=== PATIENT | male | born 1960 | race Caucasian/White ===

== ENCOUNTER 2022-06-21 08:26 | Inpatient (IN) | payer OTHER, SELFPAY ==
[2022-06-21 08:28] VITALS: BP 188/112; PULSE 73; RESP 18; TEMP 36.6; O2SAT 98; BMI 31.0
--- NOTE | 2022-06-21 08:51 | ECG_ITS ---
Test Reason : medical clearance Blood Pressure : / mmHG Vent. Rate : 064 BPM Atrial Rate : 064 BPM P-R Int : 178 ms QRS Dur : 072 ms QT Int : 434 ms P-R-T Axes : 022 000 014 degrees QTc Int : 447 ms Normal sinus rhythm Normal ECG No previous ECGs available Referred By: Magui Jacques Electronically Signed By:DESTINEE ESPARZA
--- NOTE | 2022-06-21 08:52 | ED_ITS ---
HPI - Psych General Chief Complaint: Psychiatric Symptoms Stated Complaint: crisis Time Seen by Provider: 06/21/22 08:51 Source: patient Mode of arrival: ambulatory Limitations: no limitations History of Present Illness MD complaint: suicidal ideation and feels depressed Onset (ago): day(s) (2) Duration: getting worse History of same: Yes Relieving factors: none Exacerbating factors: alcohol and drug use Context: recent alcohol abuse and recent drug abuse Associated psychiatric symptoms: depression and suicidal ideation Associated symptoms: denies other symptoms If self harm: admits thoughts of self harm and has plan Related Data Home Medications Medication Instructions Recorded Confirmed divalproex 500 mg tablet,delayed 1 tab PO DAILY 06/21/22 06/21/22 release divalproex 500 mg tablet,delayed 1,000 mg PO BEDTIME 06/21/22 06/21/22 release doxycycline monohydrate 100 mg 100 mg PO BID 06/21/22 06/21/22 tablet duloxetine 60 mg capsule,delayed 1 cap PO DAILY 06/21/22 06/21/22 release gabapentin 800 mg tablet 1 tab PO TID 06/21/22 06/21/22 quetiapine 100 mg tablet 1 tab PO BEDTIME 06/21/22 06/21/22 Allergies Allergy/AdvReac Type Severity Reaction Status Date / Time buprenorphine [From Suboxone] Allergy Unknown Verified 06/21/22 08:56 naloxone [From Suboxone] Allergy Unknown Verified 06/21/22 08:56 Review of Systems Review of Systems: Constitutional : No Fever, No Chills ENT/Mouth : No Ear Pain, No Nasal Congestion, No sore throat Eyes: No Eye Pain, No Swelling, No Redness Cardiovascular : No Chest Pain, No SOB Respiratory : No Cough, No Sputum, No Dyspnea Gastrointestinal : No Nausea, No Vomiting, No Diarrhea, No Hematochezia, No Melena Genitourinary : No Dysuria, No Urinary Frequency, No Hematuria Musculoskeletal : No Myalgias Skin : No Skin Lesions, No rash Neuro : No Weakness, No Numbness, No Paresthesias, No Dizziness, No Headache Psych : positive Anxiety, positive Depression, positive SI no HI Heme/Lymph: No Lymphadenopathy Endocrine : No Polyuria, No Polydipsia All other systems reviewed and are negative [facility] Past Medical History Attestation statement: The following information was validated with the patient. Medical History Arthritis Depression HTN (hypertension) Social History Social History Alcohol intake: current Patient Tobacco Use Status: Current someday Tobacco user Substance Use Type: Crack/Cocaine Advance Directives: No Advance Directives Information Provided: No Physical Exam Vital Signs: Vital Signs: Last Vital Signs Temp 98 F 06/21/22 08:28 Pulse 73 06/21/22 08:28 Resp 18 06/21/22 08:28 BP 188/112 H 06/21/22 08:28 Pulse Ox 98 06/21/22 08:28 O2 Del Method 06/21/22 08:28 BMI result Body Mass Index 31.0 Appearance: Alert. Oriented X3. No acute distress. Calm and cooperative Eyes: Pupils equal, round and reactive to light. ENT: Pharynx normal. Neck: Normal inspection. Neck supple. CVS: Normal heart rate and rhythm. Pulses normal. Respiratory: No respiratory distress. Breath sounds normal. Abdomen: Soft and non-tender. Skin: Skin warm and dry. Normal skin color. Normal skin turgor. Extremities: No lower extremity edema. No calf ttp Neuro: Oriented X 3. No motor deficit. No sensory deficit. CN 2-12 intact Course Course Course Narrative: Physician observation started at 933am. Patient placed in physician observation because the patient needed more time for BHN to assess the need for psych admission. S 12 signed given SI complaints. At the time observation was started the patient's vitals were stable, patient is alert and oriented but slightly anxious, Neuro: nonfocal, CV RRR, Lungs clear patient now notes he took #30 800mg tabs of of gabapentin early this AM but he is wide awake very chatty looking around laughing no signs of sedation no signs of sedation today inpatient bed search per CARE team. MDM - Psych MDM Narrative Medical decision making narrative: 62 yo male with hx of HTN, arthritis, depression here with c/o SI and plan to hang himself or find a gun to end his life at this time labs, BHN consult ordered. S12 signed. Dispo per their recommendations. Lab Data Result diagrams: 06/21/22 09:31 06/21/22 09:31 Labs: Lab Results 06/21/22 06/21/22 06/21/22 Range/Units 09:31 09:31 10:03 WBC 13.7 H (4.8-10.8) X10*3/uL RBC 4.74 (4.60-5.80) X10*6/uL Hgb 14.6 (14.0-18.0) g/dl Hct 43.8 (42.0-52.0) % MCV 92.4 (80.0-98.0) fL MCH 30.8 (27.0-33.0) pg MCHC 33.3 (31.0-36.0) g/dl RDW 13.6 (11.0-16.0) % Plt Count 247 (160-400) X10*3/uL MPV 9.9 (9.4-12.4) fL Immature Gran % (Auto) 0.4 (0.0-0.4) % Neut % (Auto) 74.5 H (45-73) % Lymph % (Auto) 13.4 L (20-40) % [place] % (Auto) 10.9 (2-11) % Eos % (Auto) 0.4 (0-4) % Baso % (Auto) 0.4 (0-2) % Lymph # (Auto) 1.8 (1.2-4.9) X10*3/uL [place] # (Auto) 1.5 H (0.1-1.2) X10*3/uL Eos # (Auto) 0.1 (0.0-0.4) X10*3/uL Baso # (Auto) 0.1 (0.0-0.2) X10*3/uL Abs Immat Gran (auto) 0.05 H (0.00-0.03) X10*3/uL Absolute Neuts (auto) 10.2 H (2.0-8.3) x10*3/uL Absolute Nucleated RBC 0.000 (0.0-0.012) X10*3/uL Nucleated RBC % (auto) 0.0 (0.0-0.2) /100WBC Sodium 140 (135-145) mmol/L Potassium 3.9 (3.3-5.1) mmol/L Chloride 104 (96-108) mmol/L Carbon Dioxide 24 (22-29) mmol/L Anion Gap 16 (12-20) BUN 17 H (9-16) mg/dL Creatinine 0.86 (0.5-1.4) mg/dL Estim Creat Clear Calc 101.4 Estimated GFR > 60 Random Glucose 105 (60-115) mg/dL Calcium 9.0 (8.4-10.2) mg/dL Magnesium 2.2 (1.6-2.6) mg/dL Total Bilirubin 0.7 (0.0-1.0) mg/dL Direct Bilirubin 0.3 (0.0-0.5) mg/dL AST 27 (5-37) U/L ALT 16 (0-40) U/L Alkaline Phosphatase 84 (39-117) U/L Total Protein 7.1 (6.5-8.0) g/dL Albumin 4.4 (3.5-5.0) g/dL Urine Color Urine Appearance Urine pH (5.0-8.0) Ur Specific [place] (1.005-1.025) Urine Protein (NEG-TRACE) MG/DL Urine Glucose (UA) (NEG) MG/DL Urine Ketones (NEG) MG/DL Urine Blood (NEG) Urine Nitrite (NEG) Ur Leukocyte Esterase (NEG) Urine Opiates Screen (Not Detect) Urine Fentanyl Screen (Not Detect) Ur Barbiturates Screen (Not Detect) Ur Phencyclidine Scrn (Not Detect) Ur Amphetamines Screen (Not Detect) U Benzodiazepines Scrn (Not Detect) Urine Cocaine Screen (Not Detect) U Marijuana (THC) Screen (Not Detect) Ethyl Alcohol < 10 mg/dL COVID-19 (MAN) Negative (Negative) COVID-19 Clin Com See Note 06/21/22 06/21/22 Range/Units 10:03 10:03 WBC (4.8-10.8) X10*3/uL RBC (4.60-5.80) X10*6/uL Hgb (14.0-18.0) g/dl Hct (42.0-52.0) % MCV (80.0-98.0) fL MCH (27.0-33.0) pg MCHC (31.0-36.0) g/dl RDW (11.0-16.0) % Plt Count (160-400) X10*3/uL MPV (9.4-12.4) fL Immature Gran % (Auto) (0.0-0.4) % Neut % (Auto) (45-73) % Lymph % (Auto) (20-40) % [place] % (Auto) (2-11) % Eos % (Auto) (0-4) % Baso % (Auto) (0-2) % Lymph # (Auto) (1.2-4.9) X10*3/uL [place] # (Auto) (0.1-1.2) X10*3/uL Eos # (Auto) (0.0-0.4) X10*3/uL Baso # (Auto) (0.0-0.2) X10*3/uL Abs Immat Gran (auto) (0.00-0.03) X10*3/uL Absolute Neuts (auto) (2.0-8.3) x10*3/uL Absolute Nucleated RBC (0.0-0.012) X10*3/uL Nucleated RBC % (auto) (0.0-0.2) /100WBC Sodium (135-145) mmol/L Potassium (3.3-5.1) mmol/L Chloride (96-108) mmol/L Carbon Dioxide (22-29) mmol/L Anion Gap (12-20) BUN (9-16) mg/dL Creatinine (0.5-1.4) mg/dL Estim Creat Clear Calc Estimated GFR Random Glucose (60-115) mg/dL Calcium (8.4-10.2) mg/dL Magnesium (1.6-2.6) mg/dL Total Bilirubin (0.0-1.0) mg/dL Direct Bilirubin (0.0-0.5) mg/dL AST (5-37) U/L ALT (0-40) U/L Alkaline Phosphatase (39-117) U/L Total Protein (6.5-8.0) g/dL Albumin (3.5-5.0) g/dL Urine Color YELLOW Urine Appearance CLEAR Urine pH 5.5 (5.0-8.0) Ur Specific [place] 1.020 (1.005-1.025) Urine Protein NEG (NEG-TRACE) MG/DL Urine Glucose (UA) NEG (NEG) MG/DL Urine Ketones 5 (NEG) MG/DL Urine Blood NEG (NEG) Urine Nitrite NEG (NEG) Ur Leukocyte Esterase NEG (NEG) Urine Opiates Screen Not Detected (Not Detect) Urine Fentanyl Screen Not Detected (Not Detect) Ur Barbiturates Screen Not Detected (Not Detect) Ur Phencyclidine Scrn Not Detected (Not Detect) Ur Amphetamines Screen Not Detected (Not Detect) U Benzodiazepines Scrn Not Detected (Not Detect) Urine Cocaine Screen POSITIVE H (Not Detect) U Marijuana (THC) Screen Not Detected (Not Detect) Ethyl Alcohol mg/dL COVID-19 (MAN) (Negative) COVID-19 Clin Com ECG Data Attestation: I personally reviewed and interpreted this ECG as follows: ECG interpretation date: 06/21/22 ECG interpretation time: 09:40 Interpretation: Rate: 64 Rhythm: NSR [place]: left Normal P waves. Normal KAYLEE. Normal QRS complex. ST T wave : normal no FRANCISCA qTC: normal prior studies: no acute ischemia The study has been interpreted contemporaneously by me. . Discharge Plan Discharge Clinical Impression: Depression Qualifiers: Depression Type: unspecified Qualified Code(s): F32.A - Depression, unspecified Patient Disposition: Still a Patient Prescriptions: No Action divalproex 500 mg tablet,delayed release (DR/EC) 1 tab PO DAILY divalproex 500 mg tablet,delayed release (DR/EC) 1,000 mg PO BEDTIME quetiapine 100 mg tablet 1 tab PO BEDTIME gabapentin 800 mg tablet 1 tab PO TID duloxetine 60 mg capsule,delayed release(DR/EC) 1 cap PO DAILY doxycycline monohydrate 100 mg Tablet 100 mg PO BID
[2022-06-21 09:36] LABS: MANUAL DIFF FLAG NO
[2022-06-21 09:39] LABS: Basophils Absolute Auto 0.1 X10*3/uL (0.0-0.2); Basophils Percent Auto 0.4 % (0-2); Eosinophils Absolute Auto 0.1 X10*3/uL (0.0-0.4); Eosinophils Percent Auto 0.4 % (0-4); Hematocrit 43.8 % (42.0-52.0); Hemoglobin 14.6 g/dl (14.0-18.0); Imm Gran Abs Auto 0.05 X10*3/uL (0.00-0.03); Imm Gran Pct Auto 0.4 % (0.0-0.4); Lymphocytes Absolute Auto 1.8 X10*3/uL (1.2-4.9); Lymphocytes Percent Auto 13.4 % (20-40); Mean Corpuscular HGB Conc 33.3 g/dl (31.0-36.0); Mean Corpuscular Hemoglobin 30.8 pg (27.0-33.0); Mean Corpuscular Volume 92.4 fL (80.0-98.0); Mean Platelet Volume 9.9 fL (9.4-12.4); Monocytes Absolute Auto 1.5 X10*3/uL (0.1-1.2); Monocytes Percent Auto 10.9 % (2-11); Neutrophils Absolute Auto 10.2 x10*3/uL (2.0-8.3); Neutrophils Percent Auto 74.5 % (45-73); Platelet Count 247 X10*3/uL (160-400); Red Blood Count 4.74 X10*6/uL (4.60-5.80); Red Cell Distribution Width 13.6 % (11.0-16.0); White Blood Count 13.7 X10*3/uL (4.8-10.8)
[2022-06-21 10:02] LABS: Alanine Aminotransferase 16 U/L (0-40); Albumin Level 4.4 g/dL (3.5-5.0); Alkaline Phosphatase 84 U/L (39-117); Anion Gap 16 (12-20); Aspartate Amino Transferase 27 U/L (5-37); Bilirubin Direct 0.3 mg/dL (0.0-0.5); Bilirubin Total 0.7 mg/dL (0.0-1.0); Blood Urea Nitrogen 17 mg/dL (9-16); Carbon Dioxide 24 mmol/L (22-29); Chloride 104 mmol/L (96-108); Creatinine Clr Calc Pharmacy 101.4; Estimated Glomerular Filt Rate > 60; Ethanol < 10 mg/dL; Glucose Random 105 mg/dL (60-115); Magnesium 2.2 mg/dL (1.6-2.6); Potassium 3.9 mmol/L (3.3-5.1); Sodium 140 mmol/L (135-145); Total Protein 7.1 g/dL (6.5-8.0)
[2022-06-21 10:22] LABS: Appearance Urine CLEAR; Color Urine YELLOW; Glucose Urine UA NEG (NEG); Leukocyte Esterase Urine NEG (NEG); Nitrite Urine NEG (NEG); PH 5.5 (5.0-8.0); Urine Blood NEG (NEG); Urine Ketones 5 MG/DL (NEG); Urine Protein NEG (NEG-TRACE)
[2022-06-21 10:25] LABS: Amphetamine Screen Urine Not Detected (Not Detect); Barbiturates, Urine Not Detected (Not Detect); Benzodiazepines Screen Urine Not Detected (Not Detect); Cannabinoid Screen Urine Not Detected (Not Detect); Cocaine Screen Urine POSITIVE (Not Detect); Fentanyl, urine Not Detected (Not Detect); Opiate Screen Urine Not Detected (Not Detect); Phencyclidine Screen Urine Not Detected (Not Detect)
[2022-06-21 10:34] LABS: COVID-19 Test Negative (Negative)
--- NOTE | 2022-06-21 11:26 | PC.NURSE ---
pt got out of bed and started ambulating toward the exit. reports he wants to leave. pt stated he never should have come here because he just wants to so badly . pt educated on his legal status as a section 12. redirected to his bed.
--- NOTE | 2022-06-21 11:38 | PHA.MEDREC ---
Pharmacy Consult ? Medication Reconciliation Pharmacy has completed the medication reconciliation. Patient states he takes Doxy 100 mg BID for his knee infection
[2022-06-21] MEDS: LORazepam 1 MG TABLET PO (15:42)
[2022-06-21 17:49] VITALS: BP 148/80; PULSE 59; RESP 15; TEMP 36.6; O2SAT 96
--- NOTE | 2022-06-21 19:45 | MHC.RECOVSUP ---
? Reason for consult:JONNA o Current location:BH3 o Identified substance use concern: - Support ? Intervention: o Harm reduction discussion ? Plan:Refer to css, and RC prior to discgharge. ? Additional information:Pt would like to work with a RC and go to a css once his mind is clearer. Please continue to follow up with
[2022-06-21] MEDS: Gabapentin 400 MG CAPSULE 800 MG PO (21:24)
[2022-06-21] MEDS: Divalproex Sodium 500 MG TABLET.DR 1000 MG PO (21:25)
[2022-06-21] MEDS: QUEtiapine Fumarate 100 MG TABLET PO (21:25)
--- NOTE | 2022-06-22 06:43 | PC.NURSE ---
Patient slept through the night, no distress observed/reported, medication compliant, behavior non concerning, disposition per care team is section 12 inpatient bed search, patient is pre-accepted [facility] behavioral health unit, VSS, will continue to monitor.
--- NOTE | 2022-06-22 07:10 | PC.NURSE ---
patient appears to remain at rest at present respirations are even and unlabored patient appears in no distress
[2022-06-22] MEDS: Gabapentin 400 MG CAPSULE 800 MG PO ×3 (09:00→20:21)
[2022-06-22] MEDS: Divalproex Sodium 500 MG TABLET.DR PO (09:16)
[2022-06-22] MEDS: DULoxetine HCl 60 MG CAPSULE.DR PO (09:16)
[2022-06-22 18:23] VITALS: BP 159/85; PULSE 72; TEMP 36.6; O2SAT 95
--- NOTE | 2022-06-22 18:41 | PC.ADMIT ---
pt is a 62 year old male who presented to the [facility] ED with SI and plans to overdose. pt has a positive tox screen for cocaine and alcohol. pt has history of inpatient psych admission since he was 28 years old, last admission in May 2022. during admission, pt denies any SI/AH/VH, but states he feels hopeless and feels like he wants to . he recently left a TSS program a week ago and he has no outpatient services. pt wants to use his cane, but can walk perfectly well without it, just needs time to get up and needs to slowly walk places. notified doc of cane use. start treatment plan and monitor for safety and SI.
[2022-06-22] MEDS: Divalproex Sodium 500 MG TABLET.DR 1000 MG PO (20:21)
[2022-06-22] MEDS: QUEtiapine Fumarate 100 MG TABLET PO (20:22)
[2022-06-23 08:35] VITALS: BP 141/90; PULSE 58; RESP 17; TEMP 36.3; O2SAT 97
[2022-06-23] MEDS: DULoxetine HCl 60 MG CAPSULE.DR PO (08:44)
[2022-06-23] MEDS: Gabapentin 400 MG CAPSULE 800 MG PO ×3 (08:44→19:38)
[2022-06-23] MEDS: Divalproex Sodium 500 MG TABLET.DR PO (08:44)
[2022-06-23 09:23] LABS: Estimated Average Glucose 100 mg/dL; Hemoglobin A1c % 5.1 %
[2022-06-23 09:25] LABS: Alanine Aminotransferase 17 U/L (0-40); Albumin Level 4.2 g/dL (3.5-5.0); Alkaline Phosphatase 81 U/L (39-117); Anion Gap 17 (12-20); Aspartate Amino Transferase 22 U/L (5-37); Bilirubin Total 0.4 mg/dL (0.0-1.0); Blood Urea Nitrogen 20 mg/dL (9-16); Calcium 9.2 mg/dL (8.4-10.2); Carbon Dioxide 26 mmol/L (22-29); Chloride 103 mmol/L (96-108); Cholesterol 163 mg/dL; Creatinine Clr Calc Pharmacy 86.3; Estimated Glomerular Filt Rate > 60; Glucose Fasting 92 mg/dL (60-99); HDL Cholesterol 51 mg/dL; LDL Cholesterol Calculated 101 mg/dl; Potassium 4.5 mmol/L (3.3-5.1); Sodium 141 mmol/L (135-145); Total Protein 7.2 g/dL (6.5-8.0); Triglycerides 55 mg/dL
[2022-06-23 09:45] LABS: Free T4 (Free Thyroxine) 0.94 ng/dL (0.71-1.85)
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
[2022-06-23] MEDS: Acetaminophen 325 MG TABLET 650 MG PO (16:03)
[2022-06-23 18:15] VITALS: BP 134/96; PULSE 53; TEMP 35.6; O2SAT 96
[2022-06-23] MEDS: Prazosin HCL 1 MG CAPSULE PO (19:38)
[2022-06-23] MEDS: QUEtiapine Fumarate 100 MG TABLET PO (19:38)
[2022-06-23] MEDS: Divalproex Sodium 500 MG TABLET.DR 1000 MG PO (19:38)
[2022-06-24 06:00] VITALS: BP 142/98; PULSE 54; TEMP 36.5; O2SAT 92
[2022-06-24 07:00] VITALS: BMI 31.8
[2022-06-24] MEDS: Divalproex Sodium 500 MG TABLET.DR PO (09:00)
[2022-06-24] MEDS: Gabapentin 400 MG CAPSULE 800 MG PO ×3 (09:00→19:51)
[2022-06-24] MEDS: DULoxetine HCl 60 MG CAPSULE.DR PO (09:00)
[2022-06-24] MEDS: hydrOXYzine HCL 25 MG TABLET PO ×2 (09:04→17:52)
[2022-06-24] MEDS: Acetaminophen 325 MG TABLET 650 MG PO (09:04)
--- NOTE | 2022-06-24 14:11 | P.PNPSI_ITS ---
Subjective Subjective Date of Service: 06/24/22 Reason For Visit: depression/ SI Interim History: Patient reports a little better but overall still feeling down, mostly due to his life situation; struggling to be optimistic. Having nightmares and agrees to increasing prazosin. No SI, no HI. He would also like to have Depakote moved to bedtime if possible. patient said that he has been on Wellbutrin in the past and asked if that could be started Mental Status Exam Mental Status Exam Narrative: Pt is alert and oriented; behavior is cooperative, friendly and calm; patient emotionally distressed; dressed in casual attire with adequate hygiene; mood is described as A little down and affect congruent, downcast; eye contact appropriate; Speech is normal rate, volume and prosody and not pressured; psychomotor retardation present; thought process is organized and goal directed; Thought content with hopelessness, tired of living; otherwise pertinent to relevant topics and without any delusional content, paranoid ideations or grandiosity; No SI; no HI. There is no evidence of perceptual disturbance; Patients insight and judgment are intact. Diagnostics Vital Signs (24Hr): Vital Signs - 24 hr 06/23/22 18:15 06/24/22 06:00 Temperature 96.1 F L 97.7 F Pulse Rate 53 54 Blood Pressure 134/96 H 142/98 H Pulse Oximetry 96 92 BMI result Body Mass Index 31.8 Labs Results: 06/21/22 09:31 06/23/22 08:06 Labs: Laboratory Results - last 48 hr 06/23/22 06/23/22 08:06 08:06 Sodium 141 Potassium 4.5 Chloride 103 Carbon Dioxide 26 Anion Gap 17 BUN 20 H Creatinine 1.01 Estim Creat Clear Calc 86.3 Estimated GFR > 60 Fasting Glucose 92 Estimat Average Glucose 100 Hemoglobin A1c % 5.1 Calcium 9.2 Total Bilirubin 0.4 AST 22 ALT 17 Alkaline Phosphatase 81 Total Protein 7.2 Albumin 4.2 Triglycerides 55 Cholesterol 163 LDL Cholesterol, Calc 101 HDL Cholesterol 51 Free T4 0.94 Medications Medications Current Medications Acetaminophen (Acetaminophen 325 Mg Tablet) 650 mg PO Q6H PRN PRN Reason: Headache/Pain Mild Scale (1-3) Last Admin: 06/24/22 09:04 Dose: 650 mg Al Hydroxide/Mg Hydroxide (Magnesium Hydrox/Alum Hydrox 30 Ml Oral.Susp) 30 ml PO Q6H PRN PRN Reason: Heartburn/Nausea Al Hydroxide/Mg Hydroxide (Magnesium Hydrox/Alum Hydrox 30 Ml Oral.Susp) 30 ml PO Q6H PRN PRN Reason: Heartburn/Nausea Divalproex Sodium (Divalproex Sodium 500 Mg Tablet.) 500 mg PO DAILY [facility] Last Admin: 06/24/22 09:00 Dose: 500 mg Divalproex Sodium (Divalproex Sodium 500 Mg Tablet.) 1,000 mg PO BEDTIME [facility] Last Admin: 06/23/22 19:38 Dose: 1,000 mg Duloxetine HCl (Duloxetine Hcl 60 Mg Capsule.) 60 mg PO DAILY [facility] Last Admin: 06/24/22 09:00 Dose: 60 mg Gabapentin (Gabapentin 400 Mg Capsule) 800 mg PO TID [facility] Last Admin: 06/24/22 09:00 Dose: 800 mg Hydroxyzine HCl (Hydroxyzine Hcl 25 Mg Tablet) 25 mg PO Q6H PRN PRN Reason: Anxiety Last Admin: 06/24/22 09:04 Dose: 25 mg Hydroxyzine HCl (Hydroxyzine Hcl 25 Mg Tablet) 25 mg PO Q6H PRN PRN Reason: Anxiety Magnesium Hydroxide (Milk Of Magnesia 30 Ml Oral.Susp) 30 ml PO DAILY PRN PRN Reason: Constipation Magnesium Hydroxide (Milk Of Magnesia 30 Ml Oral.Susp) 30 ml PO DAILY PRN PRN Reason: Constipation Nicotine Polacrilex (Nicotine Polacrilex 2 Mg Gum) 4 mg BUCCAL Q2H PRN PRN Reason: Nicotine Cravings Pharmacy Consult (Consult Rx Perform Med Rec) 1 each MISCELLANE ONCE PRN PRN Reason: Consult order Prazosin HCl (Prazosin Hcl 1 Mg Capsule) 1 mg PO BEDTIME [facility]; Protocol Last Admin: 06/23/22 19:38 Dose: 1 mg Quetiapine Fumarate (Quetiapine Fumarate 100 Mg Tablet) 100 mg PO BEDTIME [facility] Last Admin: 06/23/22 19:38 Dose: 100 mg Trazodone HCl (Trazodone Hcl 50 Mg Tablet) 50 mg PO BEDTIME PRN PRN Reason: Insomnia Trazodone HCl (Trazodone Hcl 50 Mg Tablet) 50 mg PO BEDTIME PRN PRN Reason: Insomnia Allergies Allergies Allergy/AdvReac Type Severity Reaction Status Date / Time buprenorphine [From Suboxone] Allergy Unknown Verified 06/21/22 08:56 naloxone [From Suboxone] Allergy Unknown Verified 06/21/22 08:56 Assessment & Plan Assessment & Plan (1) Bipolar I disorder: Status: Acute Code(s): F31.9 - Bipolar disorder, unspecified (2) Post traumatic stress disorder (PTSD): Status: Acute Code(s): F43.10 - Post-traumatic stress disorder, unspecified Plan Patient is a 62-year-old male with history of bipolar disorder, PTSD, cocaine abuse, multiple incarcerations who presents with severe depression and SI, hopeless feelings after being relapse on cocaine and in face of homelessness and chronic leg pain. Patient reports that he was psychiatrically hospitalized over a month ago for depression and suicidality. -patient depressed and struggling with feeling hopeless and tired of living 06/24 patient's mood is a little better but he still feeling depressed; no SI. Continues to have nightmares and agrees to increase prazosin; interested Wellbutrin which he has been on before Plan: CV Q 15 minute checks Will consider Wellbutrin once valproic acid levels come back Continue Depakote 1000 mg q.h.s. and 500 mg a.m. Will check labs Increase to prazosin 2 mg q.h.s. for nightmares (discussed risks/benefits of this medication and patient wants to try) I spent minutes with the patient and/or on the patient floor today, greater than?50% of which was spent counseling/coordinating care. Patient educated on: diagnosis and medication risk/benefits Informed Consent: understands Reason for contiued inpatient stay Substantial Risk for: rapid decompensation
[2022-06-24 18:00] VITALS: BP 122/78; PULSE 68; RESP 16; TEMP 36.5; O2SAT 99
[2022-06-24] MEDS: Prazosin HCL 1 MG CAPSULE 2 MG PO (19:51)
[2022-06-24] MEDS: Divalproex Sodium 500 MG TABLET.DR 1000 MG PO (19:52)
[2022-06-24] MEDS: QUEtiapine Fumarate 100 MG TABLET PO (19:52)
[2022-06-25 06:00] VITALS: BP 157/107; PULSE 60; TEMP 36.4; O2SAT 94
[2022-06-25] MEDS: DULoxetine HCl 60 MG CAPSULE.DR PO (08:35)
[2022-06-25] MEDS: Gabapentin 400 MG CAPSULE 800 MG PO ×3 (08:35→19:21)
[2022-06-25] MEDS: Divalproex Sodium 500 MG TABLET.DR PO (08:35)
[2022-06-25 08:38] LABS: Ammonia 48 umol/L (13-55)
[2022-06-25] MEDS: hydrOXYzine HCL 25 MG TABLET PO (09:59)
[2022-06-25 10:02] LABS: Alanine Aminotransferase 13 U/L (0-40); Albumin Level 3.6 g/dL (3.5-5.0); Alkaline Phosphatase 71 U/L (39-117); Aspartate Amino Transferase 19 U/L (5-37); Bilirubin Direct 0.2 mg/dL (0.0-0.5); Bilirubin Total 0.4 mg/dL (0.0-1.0); Total Protein 6.3 g/dL (6.5-8.0)
[2022-06-25 10:26] LABS: Valproate 50.8 mcg/mL (50.0-100.0)
[2022-06-25 16:01] VITALS: BP 153/95; PULSE 68
[2022-06-25] MEDS: lisinopriL 5 MG TABLET PO (16:04)
--- NOTE | 2022-06-25 18:16 | HO.PSYCHPN ---
Subjective Subjective Date of Service: 06/25/22 Reason For Visit: depression/ SI Interim History: Patient said still feeling down but trying to be social in the milieu which he says helps; he thinks that nightmares color the next day some and agrees to further increase in prazosin. Agrees to Depakote being switched to extended release and having increased dose and making at bedtime; he asks again about Wellbutrin which underwriter agrees to start as Depakote level is low but therapeutic. Looper Operator discussed hypertension and patient said he used to be on lisinopril 10 mg; he agrees to have it restarted Mental Status Exam Mental Status Exam Narrative: Pt is alert and oriented; behavior is cooperative, friendly and calm; dressed in casual attire with adequate hygiene; mood is described as A little down and affect congruent, downcast; eye contact appropriate; Speech is normal rate, volume and prosody and not pressured; psychomotor retardation present; thought process is organized and goal directed; Thought content with hopelessness, tired of living; otherwise pertinent to relevant topics and without any delusional content, paranoid ideations or grandiosity; No SI; no HI. There is no evidence of perceptual disturbance; Patients insight and judgment are intact. Diagnostics Vital Signs (24Hr): Vital Signs - 24 hr 06/25/22 06:00 06/25/22 16:01 Temperature 97.5 F Pulse Rate 60 68 Blood Pressure 157/107 H 153/95 H Pulse Oximetry 94 BMI result Body Mass Index 31.8 Labs Results: 06/21/22 09:31 06/23/22 08:06 Labs: Laboratory Results - last 48 hr 06/25/22 06/25/22 08:25 08:25 Total Bilirubin 0.4 Direct Bilirubin 0.2 AST 19 ALT 13 Alkaline Phosphatase 71 Ammonia 48 Total Protein 6.3 L Albumin 3.6 Valproic Acid 50.8 Medications Medications Current Medications Acetaminophen (Acetaminophen 325 Mg Tablet) 650 mg PO Q6H PRN PRN Reason: Headache/Pain Mild Scale (1-3) Last Admin: 06/24/22 09:04 Dose: 650 mg Al Hydroxide/Mg Hydroxide (Magnesium Hydrox/Alum Hydrox 30 Ml Oral.Susp) 30 ml PO Q6H PRN PRN Reason: Heartburn/Nausea Al Hydroxide/Mg Hydroxide (Magnesium Hydrox/Alum Hydrox 30 Ml Oral.Susp) 30 ml PO Q6H PRN PRN Reason: Heartburn/Nausea Bupropion HCl (Bupropion Hcl Xl 150 Mg Tab.Er.24h) 150 mg PO DAILY COUNT INCLUDES [facility] Divalproex Sodium (Divalproex Sodium Er 250 Mg Tab.Er.24h) 1,750 mg PO BEDTIME [facility] Divalproex Sodium (Divalproex Sodium Er 250 Mg Tab.Er.24h) 1,250 mg PO ONCE ONE Stop: 06/25/22 21:01 Duloxetine HCl (Duloxetine Hcl 60 Mg Capsule.Dr) 60 mg PO DAILY [facility] Last Admin: 06/25/22 08:35 Dose: 60 mg Gabapentin (Gabapentin 400 Mg Capsule) 800 mg PO TID COUNT INCLUDES [facility] Last Admin: 06/25/22 14:17 Dose: 800 mg Hydroxyzine HCl (Hydroxyzine Hcl 25 Mg Tablet) 25 mg PO Q6H PRN PRN Reason: Anxiety Last Admin: 06/25/22 09:59 Dose: 25 mg Hydroxyzine HCl (Hydroxyzine Hcl 25 Mg Tablet) 25 mg PO Q6H PRN PRN Reason: Anxiety Lisinopril (Lisinopril 5 Mg Tablet) 5 mg PO DAILY [facility]; Protocol Magnesium Hydroxide (Milk Of Magnesia 30 Ml Oral.Susp) 30 ml PO DAILY PRN PRN Reason: Constipation Magnesium Hydroxide (Milk Of Magnesia 30 Ml Oral.Susp) 30 ml PO DAILY PRN PRN Reason: Constipation Nicotine Polacrilex (Nicotine Polacrilex 2 Mg Gum) 4 mg BUCCAL Q2H PRN PRN Reason: Nicotine Cravings Pharmacy Consult (Consult Rx Perform Med Rec) 1 each MISCELLANE ONCE PRN PRN Reason: Consult order Prazosin HCl (Prazosin Hcl 1 Mg Capsule) 3 mg PO BEDTIME COUNT INCLUDES [facility]; Protocol Quetiapine Fumarate (Quetiapine Fumarate 100 Mg Tablet) 100 mg PO BEDTIME [facility] Last Admin: 06/24/22 19:52 Dose: 100 mg Trazodone HCl (Trazodone Hcl 50 Mg Tablet) 50 mg PO BEDTIME PRN PRN Reason: Insomnia Trazodone HCl (Trazodone Hcl 50 Mg Tablet) 50 mg PO BEDTIME PRN PRN Reason: Insomnia Allergies Allergies Allergy/AdvReac Type Severity Reaction Status Date / Time buprenorphine [From Suboxone] Allergy Unknown Verified 06/21/22 08:56 naloxone [From Suboxone] Allergy Unknown Verified 08/15/22 08:56 Assessment & Plan Assessment & Plan (1) Bipolar I disorder: Status: Acute Code(s): F31.9 - Bipolar disorder, unspecified (2) Post traumatic stress disorder (PTSD): Status: Acute Code(s): F43.10 - Post-traumatic stress disorder, unspecified Plan Patient is a 62-year-old male with history of bipolar disorder, PTSD, cocaine abuse, multiple incarcerations who presents with severe depression and SI, hopeless feelings after being relapse on cocaine and in face of homelessness and chronic leg pain. Patient reports that he was psychiatrically hospitalized over a month ago for depression and suicidality. -patient depressed and struggling with feeling hopeless and tired of living 06/24 patient's mood is a little better but he still feeling depressed; no SI. Continues to have nightmares and agrees to increase prazosin; interested Wellbutrin which he has been on before Plan: CV Q 15 minute checks Start lisinopril 5 mg q.a.m. (was on 10 mg in past) Start Wellbutrin XL 150 mg a.m. Transition to Depakote ER 1750 mg q.h.s. (increased dose to correlate with Depakote DR 1500 mg) Depakote level low but therapeutic Increase to prazosin 3 mg q.h.s. for nightmares (discussed risks/benefits of this medication and patient wants to try) I spent minutes with the patient and/or on the patient floor today, greater than?50% of which was spent counseling/coordinating care. Patient educated on: diagnosis, medication risk/benefits and medical condition Informed Consent: understands Reason for contiued inpatient stay Substantial Risk for: rapid decompensation
[2022-06-25 19:15] VITALS: BP 141/77; PULSE 62
[2022-06-25] MEDS: Prazosin HCL 1 MG CAPSULE 3 MG PO (19:20)
[2022-06-25] MEDS: QUEtiapine Fumarate 100 MG TABLET PO (19:21)
[2022-06-25] MEDS: Divalproex Sodium ER 250 MG TAB.ER.24H 1250 MG PO (19:21)
[2022-06-26] MEDS: Gabapentin 400 MG CAPSULE 800 MG PO ×3 (08:36→19:51)
[2022-06-26] MEDS: lisinopriL 5 MG TABLET PO (08:36)
[2022-06-26] MEDS: buPROPion HCl XL 150 MG TAB.ER.24H PO (08:36)
[2022-06-26] MEDS: DULoxetine HCl 60 MG CAPSULE.DR PO (08:36)
[2022-06-26 09:09] VITALS: BP 159/97; PULSE 65; RESP 16; TEMP 36.6; O2SAT 98
[2022-06-26 16:17] VITALS: BP 160/96; PULSE 68; RESP 18; TEMP 36.6; O2SAT 95
[2022-06-26] MEDS: Prazosin HCL 1 MG CAPSULE 3 MG PO (19:51)
[2022-06-26] MEDS: QUEtiapine Fumarate 100 MG TABLET PO (19:51)
[2022-06-26] MEDS: Divalproex Sodium ER 250 MG TAB.ER.24H 1750 MG PO (19:52)
--- NOTE | 2022-06-26 21:15 | P.PNPSI_ITS ---
Subjective Subjective Date of Service: 06/26/22 Reason For Visit: depression/ SI Interim History: Reports mood is better and that he had a good night, no nightmares. Denies any SI. He feels that Wellbutrin which was started this morning is helpful. Mental Status Exam Mental Status Exam Narrative: Pt is alert and oriented; behavior is cooperative, friendly and calm; dressed in casual attire with adequate hygiene; mood is described as better and affect congruent, brighter; eye contact appropriate; Speech is normal rate, volume and prosody and not pressured; no psychomotor retardation present; thought process is organized and goal directed; Thought content is on plans to stay sober, regrets vs hopes; otherwise pertinent to relevant topics and without any delusional content, paranoid ideations or grandiosity; No SI; no HI. There is no evidence of perceptual disturbance; Patients insight and judgment are intact. Diagnostics Vital Signs (24Hr): Vital Signs - 24 hr 06/26/22 09:09 06/26/22 16:17 Temperature 97.9 F 97.8 F Pulse Rate 65 68 Respiratory Rate 16 18 Blood Pressure 159/97 H 160/96 H Pulse Oximetry 98 95 Oxygen Delivery Method Room Air Room Air BMI result Body Mass Index 31.8 Labs Results: 06/21/22 09:31 06/23/22 08:06 Labs: Laboratory Results - last 48 hr 06/25/22 06/25/22 08:25 08:25 Total Bilirubin 0.4 Direct Bilirubin 0.2 AST 19 ALT 13 Alkaline Phosphatase 71 Ammonia 48 Total Protein 6.3 L Albumin 3.6 Valproic Acid 50.8 Medications Medications Current Medications Acetaminophen (Acetaminophen 325 Mg Tablet) 650 mg PO Q6H PRN PRN Reason: Headache/Pain Mild Scale (1-3) Last Admin: 06/24/22 09:04 Dose: 650 mg Al Hydroxide/Mg Hydroxide (Magnesium Hydrox/Alum Hydrox 30 Ml Oral.Susp) 30 ml PO Q6H PRN PRN Reason: Heartburn/Nausea Al Hydroxide/Mg Hydroxide (Magnesium Hydrox/Alum Hydrox 30 Ml Oral.Susp) 30 ml PO Q6H PRN PRN Reason: Heartburn/Nausea Bupropion HCl (Bupropion Hcl Xl 150 Mg Tab.Er.24h) 150 mg PO DAILY [facility] Last Admin: 06/26/22 08:36 Dose: 150 mg Divalproex Sodium (Divalproex Sodium Er 250 Mg Tab.Er.24h) 1,750 mg PO BEDTIME [facility] Last Admin: 06/26/22 19:52 Dose: 1,750 mg Duloxetine HCl (Duloxetine Hcl 60 Mg Capsule.Dr) 60 mg PO DAILY [facility] Last Admin: 06/26/22 08:36 Dose: 60 mg Gabapentin (Gabapentin 400 Mg Capsule) 800 mg PO TID [facility] Last Admin: 06/26/22 19:51 Dose: 800 mg Hydroxyzine HCl (Hydroxyzine Hcl 25 Mg Tablet) 25 mg PO Q6H PRN PRN Reason: Anxiety Last Admin: 06/25/22 09:59 Dose: 25 mg Hydroxyzine HCl (Hydroxyzine Hcl 25 Mg Tablet) 25 mg PO Q6H PRN PRN Reason: Anxiety Lisinopril (Lisinopril 5 Mg Tablet) 5 mg PO DAILY [facility]; Protocol Last Admin: 06/26/22 08:36 Dose: 5 mg Magnesium Hydroxide (Milk Of Magnesia 30 Ml Oral.Susp) 30 ml PO DAILY PRN PRN Reason: Constipation Magnesium Hydroxide (Milk Of Magnesia 30 Ml Oral.Susp) 30 ml PO DAILY PRN PRN Reason: Constipation Nicotine Polacrilex (Nicotine Polacrilex 2 Mg Gum) 4 mg BUCCAL Q2H PRN PRN Reason: Nicotine Cravings Pharmacy Consult (Consult Rx Perform Med Rec) 1 each MISCELLANE ONCE PRN PRN Reason: Consult order Prazosin HCl (Prazosin Hcl 1 Mg Capsule) 3 mg PO BEDTIME [facility]; Protocol Last Admin: 06/26/22 19:51 Dose: 3 mg Quetiapine Fumarate (Quetiapine Fumarate 100 Mg Tablet) 100 mg PO BEDTIME [facility] Last Admin: 06/26/22 19:51 Dose: 100 mg Trazodone HCl (Trazodone Hcl 50 Mg Tablet) 50 mg PO BEDTIME PRN PRN Reason: Insomnia Trazodone HCl (Trazodone Hcl 50 Mg Tablet) 50 mg PO BEDTIME PRN PRN Reason: Insomnia Allergies Allergies Allergy/AdvReac Type Severity Reaction Status Date / Time buprenorphine [From Suboxone] Allergy Unknown Verified 06/21/22 08:56 naloxone [From Suboxone] Allergy Unknown Verified 06/21/22 08:56 Assessment & Plan Assessment & Plan (1) Bipolar I disorder: Status: Acute Code(s): F31.9 - Bipolar disorder, unspecified (2) Post traumatic stress disorder (PTSD): Status: Acute Code(s): F43.10 - Post-traumatic stress disorder, unspecified Plan Patient is a 62-year-old male with history of bipolar disorder, PTSD, cocaine abuse, multiple incarcerations who presents with severe depression and SI, hopeless feelings after being relapse on cocaine and in face of homelessness and chronic leg pain. Patient reports that he was psychiatrically hospitalized over a month ago for depression and suicidality. -patient depressed and struggling with feeling hopeless and tired of living 06/24 patient's mood is a little better but he still feeling depressed; no SI. C ontinues to have nightmares and agrees to increase prazosin; interested Wellbutrin which he has been on before 06/26 Mood has improved; thinks Wellbutrin is helping. No SI and patient more optimistic and hopeful about staying sober. Plan: CV Q 15 minute checks lisinopril 5 mg q.a.m. (was on 10 mg in past) Wellbutrin XL 150 mg a.m. Depakote ER 1750 mg q.h.s. (increased dose to correlate with Depakote DR 1500 mg) Depakote level low but therapeutic Increase to prazosin 3 mg q.h.s. for nightmares (discussed risks/benefits of this medication and patient wants to try) I spent minutes with the patient and/or on the patient floor today, greater than?50% of which was spent counseling/coordinating care. Patient educated on: diagnosis, medication risk/benefits and substance abuse Informed Consent: understands Reason for contiued inpatient stay Substantial Risk for: stable for discharge
[2022-06-27 06:00] VITALS: BP 172/102; PULSE 64; RESP 16; TEMP 36.2; O2SAT 95
[2022-06-27] MEDS: lisinopriL 5 MG TABLET PO (08:09)
[2022-06-27] MEDS: Gabapentin 400 MG CAPSULE 800 MG PO ×3 (08:09→19:44)
[2022-06-27] MEDS: buPROPion HCl XL 150 MG TAB.ER.24H PO (08:09)
[2022-06-27] MEDS: DULoxetine HCl 60 MG CAPSULE.DR PO (08:09)
[2022-06-27] MEDS: hydrOXYzine HCL 25 MG TABLET PO ×2 (09:53→16:04)
[2022-06-27 10:15] VITALS: BP 151/101
[2022-06-27] MEDS: Mineral Oil/Petrolatum,White 106 GM Tube 1 APPL TOPICAL (12:09)
[2022-06-27 16:12] VITALS: BP 137/86; PULSE 80; RESP 16; TEMP 36.7; O2SAT 98
--- NOTE | 2022-06-27 16:27 | HO.PSYCHPN ---
Subjective Subjective Date of Service: 06/27/22 Reason For Visit: depression/ SI Interim History: Reports feeling in good mood again today which he is very pleased about; slept well and without any nightmares. Patient talked about regrets and his deep desire to get back into his daughter's life and his grandkids life. He says he is very tired of going to hospitals and he really wants to maintain his sobriety; he is hopeful to do so and agrees that he needs to be surrounded by sober people and engaged in groups. Patient is hopeful about getting into a program. Mental Status Exam Mental Status Exam Narrative: Pt is alert and oriented; behavior is cooperative, friendly and calm; dressed in casual attire with adequate hygiene; mood is described as Good and affect congruent, brighter; eye contact appropriate; Speech is normal rate, volume and prosody and not pressured; no psychomotor retardation present; thought process is organized and goal directed; Thought content is on plans to stay sober, regrets vs hopes; otherwise pertinent to relevant topics and without any delusional content, paranoid ideations or grandiosity; No SI; no HI. There is no evidence of perceptual disturbance; Patients insight and judgment are intact. Diagnostics Vital Signs (24Hr): Vital Signs - 24 hr 06/27/22 06:00 06/27/22 10:15 06/27/22 16:12 Temperature 97.2 F 98.0 F Pulse Rate 64 80 Respiratory Rate 16 16 Blood Pressure 172/102 H 151/101 H 137/86 Pulse Oximetry 95 98 Oxygen Delivery Method Room Air Room Air BMI result Body Mass Index 31.8 Labs Results: 06/21/22 09:31 06/23/22 08:06 Medications Medications Current Medications Acetaminophen (Acetaminophen 325 Mg Tablet) 650 mg PO Q6H PRN PRN Reason: Headache/Pain Mild Scale (1-3) Last Admin: 06/24/22 09:04 Dose: 650 mg Al Hydroxide/Mg Hydroxide (Magnesium Hydrox/Alum Hydrox 30 Ml Oral.Susp) 30 ml PO Q6H PRN PRN Reason: Heartburn/Nausea Al Hydroxide/Mg Hydroxide (Magnesium Hydrox/Alum Hydrox 30 Ml Oral.Susp) 30 ml PO Q6H PRN PRN Reason: Heartburn/Nausea Bupropion HCl (Bupropion Hcl Xl 150 Mg Tab.Er.24h) 150 mg PO DAILY [facility] Last Admin: 06/27/22 08:09 Dose: 150 mg Divalproex Sodium (Divalproex Sodium Er 250 Mg Tab.Er.24h) 1,750 mg PO BEDTIME [facility] Last Admin: 06/26/22 19:52 Dose: 1,750 mg Duloxetine HCl (Duloxetine Hcl 60 Mg Capsule.Dr) 60 mg PO DAILY [facility] Last Admin: 06/27/22 08:09 Dose: 60 mg Gabapentin (Gabapentin 400 Mg Capsule) 800 mg PO TID [facility] Last Admin: 06/27/22 14:12 Dose: 800 mg Hydroxyzine HCl (Hydroxyzine Hcl 25 Mg Tablet) 25 mg PO Q6H PRN PRN Reason: Anxiety Last Admin: 06/27/22 16:04 Dose: 25 mg Hydroxyzine HCl (Hydroxyzine Hcl 25 Mg Tablet) 25 mg PO Q6H PRN PRN Reason: Anxiety Lisinopril (Lisinopril 5 Mg Tablet) 5 mg PO DAILY [facility]; Protocol Last Admin: 06/27/22 08:09 Dose: 5 mg Magnesium Hydroxide (Milk Of Magnesia 30 Ml Oral.Susp) 30 ml PO DAILY PRN PRN Reason: Constipation Magnesium Hydroxide (Milk Of Magnesia 30 Ml Oral.Susp) 30 ml PO DAILY PRN PRN Reason: Constipation Multi-Ingred Cream/Lotion/Oil/Oint (Mineral Oil/Petrolatum,White 106 Gm Tube) 1 appl TOPICAL TID PRN; Protocol PRN Reason: dry skin Last Admin: 06/27/22 12:09 Dose: 1 appl Nicotine Polacrilex (Nicotine Polacrilex 2 Mg Gum) 4 mg BUCCAL Q2H PRN PRN Reason: Nicotine Cravings Pharmacy Consult (Consult Rx Perform Med Rec) 1 each MISCELLANE ONCE PRN PRN Reason: Consult order Prazosin HCl (Prazosin Hcl 1 Mg Capsule) 3 mg PO BEDTIME [facility]; Protocol Last Admin: 06/26/22 19:51 Dose: 3 mg Quetiapine Fumarate (Quetiapine Fumarate 100 Mg Tablet) 100 mg PO BEDTIME [facility] Last Admin: 06/26/22 19:51 Dose: 100 mg Trazodone HCl (Trazodone Hcl 50 Mg Tablet) 50 mg PO BEDTIME PRN PRN Reason: Insomnia Trazodone HCl (Trazodone Hcl 50 Mg Tablet) 50 mg PO BEDTIME PRN PRN Reason: Insomnia Allergies Allergies Allergy/AdvReac Type Severity Reaction Status Date / Time buprenorphine [From Suboxone] Allergy Unknown Verified 06/21/22 08:56 naloxone [From Suboxone] Allergy Unknown Verified 06/21/22 08:56 Assessment & Plan Assessment & Plan (1) Bipolar I disorder: Status: Acute Code(s): F31.9 - Bipolar disorder, unspecified (2) Post traumatic stress disorder (PTSD): Status: Acute Code(s): F43.10 - Post-traumatic stress disorder, unspecified Plan Patient is a 62-year-old male with history of bipolar disorder, PTSD, cocaine abuse, multiple incarcerations who presents with severe depression and SI, hopeless feelings after being relapse on cocaine and in face of homelessness and chronic leg pain. Patient reports that he was psychiatrically hospitalized over a month ago for depression and suicidality. -patient depressed and struggling with feeling hopeless and tired of living 06/24 patient's mood is a little better but he still feeling depressed; no SI. Continues to have nightmares and agrees to increase prazosin; interested Wellbutrin which he has been on before 06/26 Mood has improved; thinks Wellbutrin is helping. No SI and patient more optimistic and hopeful about staying sober. 06/27 mood is good; no SI; tolerating medications well. Hopeful about getting into a program and optimistic about sobriety. Patient still hypertensive however will leave at lisinopril 5 mg for now and see if BP comes down some; otherwise will increase to 10 mg. Discussed Wellbutrin and patient agrees to remain on current dose for now as his mood is good; he will discuss with outpatient provider if he feels adjustments need to be made Plan: CV Q 15 minute checks lisinopril 5 mg q.a.m. (was on 10 mg in past) Wellbutrin XL 150 mg a.m. Depakote ER 1750 mg q.h.s. (increased dose to correlate with Depakote DR 1500 mg) Depakote level low but therapeutic Increase to prazosin 3 mg q.h.s. for nightmares (discussed risks/benefits of this medication and patient wants to try) I spent minutes with the patient and/or on the patient floor today, greater than?50% of which was spent counseling/coordinating care. Patient educated on: diagnosis, medication risk/benefits and medical condition Informed Consent: understands Reason for contiued inpatient stay Substantial Risk for: stable for discharge
[2022-06-27] MEDS: QUEtiapine Fumarate 100 MG TABLET PO (19:44)
[2022-06-27] MEDS: Prazosin HCL 1 MG CAPSULE 3 MG PO (19:44)
[2022-06-27] MEDS: Divalproex Sodium ER 250 MG TAB.ER.24H 1750 MG PO (19:44)
[2022-06-28 06:00] VITALS: BP 157/96; PULSE 58; RESP 16; TEMP 36.5; O2SAT 96
[2022-06-28] MEDS: buPROPion HCl XL 150 MG TAB.ER.24H PO (08:07)
[2022-06-28] MEDS: Gabapentin 400 MG CAPSULE 800 MG PO ×3 (08:07→19:40)
[2022-06-28] MEDS: DULoxetine HCl 60 MG CAPSULE.DR PO (08:07)
[2022-06-28] MEDS: lisinopriL 5 MG TABLET PO (08:07)
[2022-06-28] MEDS: Acetaminophen 325 MG TABLET 650 MG PO (14:21)
[2022-06-28] MEDS: Mineral Oil/Petrolatum,White 106 GM Tube 1 APPL TOPICAL (14:39)
[2022-06-28] MEDS: hydrOXYzine HCL 25 MG TABLET PO (16:28)
--- NOTE | 2022-06-28 16:46 | P.PNPSI_ITS ---
Subjective Subjective Date of Service: 06/28/22 Reason For Visit: depression/ SI Interim History: Patient reports good mood and continues to deny any SI at all. He is optimistic and was grateful to find out he got into a program. Patient is hopeful about staying sober. Feels medications are helping. Again no nightmares. Patient pleasant and cooperative, attending groups and engaged in treatment Mental Status Exam Mental Status Exam Narrative: Pt is alert and oriented; behavior is cooperative, friendly and calm; dressed in casual attire with adequate hygiene; mood is described as Good and affect congruent, brighter; eye contact appropriate; Speech is normal rate, volume and prosody and not pressured; no psychomotor retardation present; thought process is organized and goal directed; Thought content is on plans to stay sober, regrets vs hopes; otherwise pertinent to relevant topics and without any delusional content, paranoid ideations or grandiosity; No SI; no HI. There is no evidence of perceptual disturbance; Patients insight and judgment are intact. Diagnostics Vital Signs (24Hr): Vital Signs - 24 hr 06/28/22 06:00 Temperature 97.7 F Pulse Rate 58 Respiratory Rate 16 Blood Pressure 157/96 H Pulse Oximetry 96 Oxygen Delivery Method Room Air BMI result Body Mass Index 31.8 Labs Results: 06/21/22 09:31 06/23/22 08:06 Medications Medications Current Medications Acetaminophen (Acetaminophen 325 Mg Tablet) 650 mg PO Q6H PRN PRN Reason: Headache/Pain Mild Scale (1-3) Last Admin: 06/28/22 14:21 Dose: 650 mg Al Hydroxide/Mg Hydroxide (Magnesium Hydrox/Alum Hydrox 30 Ml Oral.Susp) 30 ml PO Q6H PRN PRN Reason: Heartburn/Nausea Al Hydroxide/Mg Hydroxide (Magnesium Hydrox/Alum Hydrox 30 Ml Oral.Susp) 30 ml PO Q6H PRN PRN Reason: Heartburn/Nausea Bupropion HCl (Bupropion Hcl Xl 150 Mg Tab.Er.24h) 150 mg PO DAILY [facility] Last Admin: 06/28/22 08:07 Dose: 150 mg Divalproex Sodium (Divalproex Sodium Er 250 Mg Tab.Er.24h) 1,750 mg PO BEDTIME [facility] Last Admin: 06/27/22 19:44 Dose: 1,750 mg Duloxetine HCl (Duloxetine Hcl 60 Mg Capsule.Dr) 60 mg PO DAILY [facility] Last Admin: 06/28/22 08:07 Dose: 60 mg Gabapentin (Gabapentin 400 Mg Capsule) 800 mg PO TID [facility] Last Admin: 06/28/22 14:18 Dose: 800 mg Hydroxyzine HCl (Hydroxyzine Hcl 25 Mg Tablet) 25 mg PO Q6H PRN PRN Reason: Anxiety Last Admin: 06/28/22 16:28 Dose: 25 mg Hydroxyzine HCl (Hydroxyzine Hcl 25 Mg Tablet) 25 mg PO Q6H PRN PRN Reason: Anxiety Lisinopril (Lisinopril 10 Mg Tablet) 10 mg PO DAILY [facility]; Protocol Magnesium Hydroxide (Milk Of Magnesia 30 Ml Oral.Susp) 30 ml PO DAILY PRN PRN Reason: Constipation Magnesium Hydroxide (Milk Of Magnesia 30 Ml Oral.Susp) 30 ml PO DAILY PRN PRN Reason: Constipation Multi-Ingred Cream/Lotion/Oil/Oint (Mineral Oil/Petrolatum,White 106 Gm Tube) 1 appl TOPICAL TID PRN; Protocol PRN Reason: dry skin Last Admin: 06/28/22 14:39 Dose: 1 appl Nicotine Polacrilex (Nicotine Polacrilex 2 Mg Gum) 4 mg BUCCAL Q2H PRN PRN Reason: Nicotine Cravings Pharmacy Consult (Consult Rx Perform Med Rec) 1 each MISCELLANE ONCE PRN PRN Reason: Consult order Prazosin HCl (Prazosin Hcl 1 Mg Capsule) 3 mg PO BEDTIME [facility]; Protocol Last Admin: 06/27/22 19:44 Dose: 3 mg Quetiapine Fumarate (Quetiapine Fumarate 100 Mg Tablet) 100 mg PO BEDTIME [facility] Last Admin: 06/27/22 19:44 Dose: 100 mg Trazodone HCl (Trazodone Hcl 50 Mg Tablet) 50 mg PO BEDTIME PRN PRN Reason: Insomnia Trazodone HCl (Trazodone Hcl 50 Mg Tablet) 50 mg PO BEDTIME PRN PRN Reason: Insomnia Allergies Allergies Allergy/AdvReac Type Severity Reaction Status Date / Time buprenorphine [From Suboxone] Allergy Unknown Verified 06/21/22 08:56 naloxone [From Suboxone] Allergy Unknown Verified 06/21/22 08:56 Assessment & Plan Assessment & Plan (1) Bipolar I disorder: Status: Acute Code(s): F31.9 - Bipolar disorder, unspecified (2) Post traumatic stress disorder (PTSD): Status: Acute Code(s): F43.10 - Post-traumatic stress disorder, unspecified Plan Patient is a 62-year-old male with history of bipolar disorder, PTSD, cocaine abuse, multiple incarcerations who presents with severe depression and SI, hopeless feelings after being relapse on cocaine and in face of homelessness and chronic leg pain. Patient reports that he was psychiatrically hospitalized over a month ago for depression and suicidality. -patient depressed and struggling with feeling hopeless and tired of living 06/24 patient's mood is a little better but he still feeling depressed; no SI. Continues to have nightmares and agrees to increase prazosin; interested Wellbutrin which he has been on before 06/26 Mood has improved; thinks Wellbutrin is helping. No SI and patient more optimistic and hopeful about staying sober. 06/27 mood is good; no SI; tolerating medications well. Hopeful about getting into a program and optimistic about sobriety. Patient still hypertensive however will leave at lisinopril 5 mg for now and see if BP comes down some; otherwise will increase to 10 mg. Discussed Wellbutrin and patient agrees to remain on current dose for now as his mood is good; he will discuss with outpatient provider if he feels adjustments need to be made 06/28 remains in good mood without any SI; feels medications are helping and he is tolerating them well. No nightmares. Optimistic and future oriented. Discussed hypertension and patient agrees to increase lisinopril back to his home dose of 10 mg Plan: CV Q 15 minute checks Increase to lisinopril 10 mg q.a.m. Wellbutrin XL 150 mg a.m. Depakote ER 1750 mg q.h.s. (increased dose to correlate with Depakote DR 1500 mg) will get labs Depakote level low but therapeutic Increase to prazosin 3 mg q.h.s. for nightmares (discussed risks/benefits of this medication and patient wants to try) I spent minutes with the patient and/or on the patient floor today, g reater than?50% of which was spent counseling/coordinating care. Patient educated on: diagnosis, medication risk/benefits and medical condition Informed Consent: understands Reason for contiued inpatient stay Substantial Risk for: stable for discharge
[2022-06-28 19:35] VITALS: BP 155/83; PULSE 63; TEMP 36.6
[2022-06-28] MEDS: QUEtiapine Fumarate 100 MG TABLET PO (19:39)
[2022-06-28] MEDS: Divalproex Sodium ER 250 MG TAB.ER.24H 1750 MG PO (19:39)
[2022-06-28] MEDS: Prazosin HCL 1 MG CAPSULE 3 MG PO (19:40)
[2022-06-29 08:00] VITALS: BP 186/111; PULSE 58; RESP 16; TEMP 36.4; O2SAT 98
[2022-06-29] MEDS: DULoxetine HCl 60 MG CAPSULE.DR PO (08:21)
[2022-06-29] MEDS: lisinopriL 10 MG TABLET PO (08:21)
[2022-06-29] MEDS: Gabapentin 400 MG CAPSULE 800 MG PO ×3 (08:21→20:06)
[2022-06-29] MEDS: buPROPion HCl XL 150 MG TAB.ER.24H PO (08:22)
[2022-06-29 09:05] VITALS: BP 175/108
[2022-06-29] MEDS: cloNIDine HCL 0.1 MG TABLET PO (09:21)
[2022-06-29 10:19] LABS: Ammonia 24 umol/L (13-55)
[2022-06-29 10:26] LABS: Alanine Aminotransferase 15 U/L (0-40); Albumin Level 4.2 g/dL (3.5-5.0); Alkaline Phosphatase 78 U/L (39-117); Aspartate Amino Transferase 17 U/L (5-37); Bilirubin Direct < 0.2 mg/dL (0.0-0.5); Bilirubin Total 0.4 mg/dL (0.0-1.0); Total Protein 7.1 g/dL (6.5-8.0)
--- NOTE | 2022-06-29 13:56 | P.PNPSI_ITS ---
Subjective Subjective Date of Service: 06/29/22 Reason For Visit: depression/ SI Interim History: Patient reports that his mood is good, great even and he remains hopeful about staying sober. No SI at all. Patient is sleeping well. He says that things that would normally aggravate in hardly bother him at all any feels that medications are working very well. Patient remains encouraged that he got into a program; also discussed that in the future he might go out to [facility] and live with his brother, who has been sober for years and invited him to come out and live there. Patient has no complaints. Discussed hypertension and patient says he will follow-up with his PCP Cdl Driver reviewed lab results with patient. Mental Status Exam Mental Status Exam Narrative: Pt is alert and oriented; behavior is cooperative, friendly and calm; dressed in casual attire with adequate hygiene; mood is described as great and affect congruent, brighter; eye contact appropriate; Speech is normal rate, volume and prosody and not pressured; no psychomotor retardation present; thought process is organized and goal directed; Thought content is on plans to stay sober, regre ts vs hopes, future plans; otherwise pertinent to relevant topics and without any delusional content, paranoid ideations or grandiosity; No SI; no HI. There is no evidence of perceptual disturbance; Patients insight and judgment are intact. Diagnostics Vital Signs (24Hr): Vital Signs - 24 hr 06/28/22 19:35 06/29/22 08:00 Temperature 97.9 F 97.6 F Pulse Rate 63 58 Respiratory Rate 16 Blood Pressure 155/83 H 186/111 H Pulse Oximetry 98 Oxygen Delivery Method Room Air BMI result Body Mass Index 31.8 Labs Results: 06/21/22 09:31 06/23/22 08:06 Labs: Laboratory Results - last 48 hr 06/29/22 06/29/22 09:47 09:47 Total Bilirubin 0.4 Direct Bilirubin < 0.2 AST 17 ALT 15 Alkaline Phosphatase 78 Ammonia 24 Total Protein 7.1 Albumin 4.2 Valproic Acid 57.0 Medications Medications Current Medications Acetaminophen (Acetaminophen 325 Mg Tablet) 650 mg PO Q6H PRN PRN Reason: Headache/Pain Mild Scale (1-3) Last Admin: 06/28/22 14:21 Dose: 650 mg Al Hydroxide/Mg Hydroxide (Magnesium Hydrox/Alum Hydrox 30 Ml Oral.Susp) 30 ml PO Q6H PRN PRN Reason: Heartburn/Nausea Al Hydroxide/Mg Hydroxide (Magnesium Hydrox/Alum Hydrox 30 Ml Oral.Susp) 30 ml PO Q6H PRN PRN Reason: Heartburn/Nausea Bupropion HCl (Bupropion Hcl Xl 150 Mg Tab.Er.24h) 150 mg PO DAILY VIK Last Admin: 06/29/22 08:22 Dose: 150 mg Divalproex Sodium (Divalproex Sodium Er 250 Mg Tab.Er.24h) 1,750 mg PO BEDTIME VIK Last Admin: 06/28/22 19:39 Dose: 1,750 mg Duloxetine HCl (Duloxetine Hcl 60 Mg Capsule.Dr) 60 mg PO DAILY VIK Last Admin: 06/29/22 08:21 Dose: 60 mg Gabapentin (Gabapentin 400 Mg Capsule) 800 mg PO TID VIK Last Admin: 06/29/22 08:21 Dose: 800 mg Hydroxyzine HCl (Hydroxyzine Hcl 25 Mg Tablet) 25 mg PO Q6H PRN PRN Reason: Anxiety Last Admin: 06/28/22 16:28 Dose: 25 mg Hydroxyzine HCl (Hydroxyzine Hcl 25 Mg Tablet) 25 mg PO Q6H PRN PRN Reason: Anxiety Lisinopril (Lisinopril 10 Mg Tablet) 10 mg PO DAILY VIK; Protocol Last Admin: 06/29/22 08:21 Dose: 10 mg Magnesium Hydroxide (Milk Of Magnesia 30 Ml Oral.Susp) 30 ml PO DAILY PRN PRN Reason: Constipation Magnesium Hydroxide (Milk Of Magnesia 30 Ml Oral.Susp) 30 ml PO DAILY PRN PRN Reason: Constipation Multi-Ingred Cream/Lotion/Oil/Oint (Mineral Oil/Petrolatum,White 106 Gm Tube) 1 appl TOPICAL TID PRN; Protocol PRN Reason: dry skin Last Admin: 06/28/22 14:39 Dose: 1 appl Nicotine Polacrilex (Nicotine Polacrilex 2 Mg Gum) 4 mg BUCCAL Q2H PRN PRN Reason: Nicotine Cravings Pharmacy Consult (Consult Rx Perform Med Rec) 1 each MISCELLANE ONCE PRN PRN Reason: Consult order Prazosin HCl (Prazosin Hcl 1 Mg Capsule) 3 mg PO BEDTIME VIK; Protocol Last Admin: 06/28/22 19:40 Dose: 3 mg Quetiapine Fumarate (Quetiapine Fumarate 100 Mg Tablet) 100 mg PO BEDTIME VIK Last Admin: 06/28/22 19:39 Dose: 100 mg Trazodone HCl (Trazodone Hcl 50 Mg Tablet) 50 mg PO BEDTIME PRN PRN Reason: Insomnia Trazodone HCl (Trazodone Hcl 50 Mg Tablet) 50 mg PO BEDTIME PRN PRN Reason: Insomnia Allergies Allergies Allergy/AdvReac Type Severity Reaction Status Date / Time buprenorphine [From Suboxone] Allergy Unknown Verified 06/21/22 08:56 naloxone [From Suboxone] Allergy Unknown Verified 06/21/22 08:56 Assessment & Plan Assessment & Plan (1) Bipolar I disorder: Status: Acute Code(s): F31.9 - Bipolar disorder, unspecified (2) Post traumatic stress disorder (PTSD): Status: Acute Code(s): F43.10 - Post-traumatic stress disorder, unspecified Plan Patient is a 62-year-old male with history of bipolar disorder, PTSD, cocaine abuse, multiple incarcerations who presents with severe depression and SI, hopeless feelings after being relapse on cocaine and in face of homelessness and chronic leg pain. Patient reports that he was psychiatrically hospitalized over a month ago for depression and suicidality. -patient depressed and struggling with feeling hopeless and tired of living 06/24 patient's mood is a little better but he still feeling depressed; no SI. Continues to have nightmares and agrees to increase prazosin; interested Wellbutrin which he has been on before 06/26 Mood has improved; thinks Wellbutrin is helping. No SI and patient more optimistic and hopeful about staying sober. 06/27 mood is good; no SI; tolerating medications well. Hopeful about getting into a program and optimistic about sobriety. Patient still hypertensive however will leave at lisinopril 5 mg for now and see if BP comes down some; otherwise will increase to 10 mg. Discussed Wellbutrin and patient agrees to remain on current dose for now as his mood is good; he will discuss with outpatient provider if he feels adjustments need to be made 06/28 remains in good mood without any SI; feels medications are helping and he is tolerating them well. No nightmares. Optimistic and future oriented. Discussed hypertension and patient agrees to increase lisinopril back to his home dose of 10 mg 06/29 remains in good mood without SI; sleeping well, tolerating medications. Remains with high blood pressure; commercial loan underwriter placed medical consult to assess for possible 2nd antihypertensive. Patient is not in imminent risk for harm to self or others and is appropriate for discharge and to continue treatment in the outpatient community. Plan: CV Q 15 minute checks Hospitalist consult placed to assess medication management for hypertension Continue lisinopril 10 mg q.a.m. Wellbutrin XL 150 mg a.m. Depakote ER 1750 mg q.h.s. (increased dose to correlate with Depakote DR 1500 mg) Labs: Within normal limits Depakote level low but therapeutic Increase to prazosin 3 mg q.h.s. for nightmares (discussed risks/benefits of this medication and patient wants to try) I spent minutes with the patient and/or on the patient floor today, greater than?50% of which was spent counseling/coordinating care. Patient educated on: diagnosis, medication risk/benefits, substance abuse and medical condition Informed Consent: understands Reason for contiued inpatient stay Substantial Risk for: stable for discharge
[2022-06-29] MEDS: hydrOXYzine HCL 25 MG TABLET PO (15:19)
[2022-06-29 18:00] VITALS: BP 155/89; PULSE 71; RESP 16; O2SAT 96
[2022-06-29] MEDS: Prazosin HCL 1 MG CAPSULE 3 MG PO (20:05)
[2022-06-29] MEDS: Divalproex Sodium ER 250 MG TAB.ER.24H 1750 MG PO (20:06)
[2022-06-29] MEDS: QUEtiapine Fumarate 100 MG TABLET PO (20:07)
[2022-06-30 06:00] VITALS: BP 166/87; PULSE 51; RESP 19; TEMP 36.6; O2SAT 97
[2022-06-30 08:15] VITALS: BP 167/102; PULSE 54
[2022-06-30] MEDS: Gabapentin 400 MG CAPSULE 800 MG PO ×3 (08:20→19:36)
[2022-06-30] MEDS: DULoxetine HCl 60 MG CAPSULE.DR PO (08:20)
[2022-06-30] MEDS: buPROPion HCl XL 150 MG TAB.ER.24H PO (08:20)
[2022-06-30] MEDS: lisinopriL 10 MG TABLET PO (08:21)
[2022-06-30] MEDS: hydrOXYzine HCL 25 MG TABLET PO ×2 (09:48→17:03)
--- NOTE | 2022-06-30 17:15 | P.PNPSI_ITS ---
Subjective Subjective Date of Service: 06/30/22 Reason For Visit: depression/ SI Subjective Notes: [facility] Warning and Conditional Voluntary Interim History: I spoke to pt's team and evaluated the pt this evening. He is found in his room, laying down, declines interview. Says he is good and everything is fine. No safety concerns. Does not want med changes. Medication Compliance: Yes Side effects from medications: No Attending Groups: Intermittent Review of Systems Acute medical concerns: No Medical Review of Systems: unchanged Mental Status Exam Mental Status Exam Narrative: Pt is alert and oriented; behavior is cooperative, friendly and calm; dressed in casual attire with adequate hygiene; mood is described as good and affect congruent, brighter; eye contact appropriate; Speech is normal rate, volume and prosody and not pressured; no psychomotor retardation present; thought process is organized and goal directed; Thought content is on plans to stay sober, regrets vs hopes, future plans; otherwise pertinent to relevant topics and without any delusional content, paranoid ideations or grandiosity; No SI; no HI. There is no evidence of perceptual disturbance;? Patients insight and judgment are intact. Diagnostics Vital Signs (24Hr): Vital Signs - 24 hr 06/29/22 18:00 06/30/22 06:00 06/30/22 08:15 Temperature 97.8 F Pulse Rate 71 51 54 Respiratory Rate 16 19 Blood Pressure 155/89 H 166/87 H 167/102 H Pulse Oximetry 96 97 Oxygen Delivery Method Room Air Room Air BMI result Body Mass Index 31.8 Labs Results: 06/21/22 09:31 06/23/22 08:06 Labs: Laboratory Results - last 48 hr 06/29/22 06/29/22 09:47 09:47 Total Bilirubin 0.4 Direct Bilirubin < 0.2 AST 17 ALT 15 Alkaline Phosphatase 78 Ammonia 24 Total Protein 7.1 Albumin 4.2 Valproic Acid 57.0 Medications Medications Current Medications Acetaminophen (Acetaminophen 325 Mg Tablet) 650 mg PO Q6H PRN PRN Reason: Headache/Pain Mild Scale (1-3) Last Admin: 06/28/22 14:21 Dose: 650 mg Al Hydroxide/Mg Hydroxide (Magnesium Hydrox/Alum Hydrox 30 Ml Oral.Susp) 30 ml PO Q6H PRN PRN Reason: Heartburn/Nausea Al Hydroxide/Mg Hydroxide (Magnesium Hydrox/Alum Hydrox 30 Ml Oral.Susp) 30 ml PO Q6H PRN PRN Reason: Heartburn/Nausea Bupropion HCl (Bupropion Hcl Xl 150 Mg Tab.Er.24h) 150 mg PO DAILY COUNTS INCLUDE 234 BEDS AT THE [facility] Last Admin: 06/30/22 08:20 Dose: 150 mg Divalproex Sodium (Divalproex Sodium Er 250 Mg Tab.Er.24h) 1,750 mg PO BEDTIME VIK Last Admin: 06/29/22 20:06 Dose: 1,750 mg Duloxetine HCl (Duloxetine Hcl 60 Mg Capsule.Dr) 60 mg PO DAILY VIK Last Admin: 06/30/22 08:20 Dose: 60 mg Gabapentin (Gabapentin 400 Mg Capsule) 800 mg PO TID VIK Last Admin: 06/30/22 14:20 Dose: 800 mg Hydroxyzine HCl (Hydroxyzine Hcl 25 Mg Tablet) 25 mg PO Q6H PRN PRN Reason: Anxiety Last Admin: 06/30/22 17:03 Dose: 25 mg Hydroxyzine HCl (Hydroxyzine Hcl 25 Mg Tablet) 25 mg PO Q6H PRN PRN Reason: Anxiety Lisinopril (Lisinopril 10 Mg Tablet) 10 mg PO DAILY VIK; Protocol Last Admin: 06/30/22 08:21 Dose: 10 mg Magnesium Hydroxide (Milk Of Magnesia 30 Ml Oral.Susp) 30 ml PO DAILY PRN PRN Reason: Constipation Magnesium Hydroxide (Milk Of Magnesia 30 Ml Oral.Susp) 30 ml PO DAILY PRN PRN Reason: Constipation Multi-Ingred Cream/Lotion/Oil/Oint (Mineral Oil/Petrolatum,White 106 Gm Tube) 1 appl TOPICAL TID PRN; Protocol PRN Reason: dry skin Last Admin: 06/28/22 14:39 Dose: 1 appl Nicotine Polacrilex (Nicotine Polacrilex 2 Mg Gum) 4 mg BUCCAL Q2H PRN PRN Reason: Nicotine Cravings Pharmacy Consult (Consult Rx Perform Med Rec) 1 each MISCELLANE ONCE PRN PRN Reason: Consult order Prazosin HCl (Prazosin Hcl 1 Mg Capsule) 3 mg PO BEDTIME COUNTS INCLUDE 234 BEDS AT [facility]; Protocol Last Admin: 06/29/22 20:05 Dose: 3 mg Quetiapine Fumarate (Quetiapine Fumarate 100 Mg Tablet) 100 mg PO BEDTIME COUNTS INCLUDE 234 BEDS AT [facility] Last Admin: 06/29/22 20:07 Dose: 100 mg Trazodone HCl (Trazodone Hcl 50 Mg Tablet) 50 mg PO BEDTIME PRN PRN Reason: Insomnia Trazodone HCl (Trazodone Hcl 50 Mg Tablet) 50 mg PO BEDTIME PRN PRN Reason: Insomnia Allergies Allergies Allergy/AdvReac Type Severity Reaction Status Date / Time buprenorphine [From Suboxone] Allergy Unknown Verified 06/21/22 08:56 naloxone [From Suboxone] Allergy Unknown Verified 06/21/22 08:56 Assessment & Plan Assessment & Plan (1) Bipolar I disorder: Status: Acute Code(s): F31.9 - Bipolar disorder, unspecified (2) Post traumatic stress disorder (PTSD): Status: Acute Code(s): F43.10 - Post-traumatic stress disorder, unspecified Plan Patient is a 62-year-old male with history of bipolar disorder, PTSD, cocaine abuse, multiple incarcerations who presents with severe depression and SI, hopeless feelings after being relapse on cocaine and in face of homelessness and chronic leg pain. Patient reports that he was psychiatrically hospitalized over a month ago for depression and suicidality. -patient depressed and struggling with feeling hopeless and tired of living 06/24 patient's mood is a little better but he still feeling depressed; no SI. Continues to have nightmares and agrees to increase prazosin; interested Wellbutrin which he has been on before 06/26 Mood has improved; thinks Wellbutrin is helping. No SI and patient more optimistic and hopeful about staying sober. 06/27 mood is good; no SI; tolerating medications well. Hopeful about getting into a program and optimistic about sobriety. Patient still hypertensive however will leave at lisinopril 5 mg for now and see if BP comes down some; otherwise will increase to 10 mg. Discussed Wellbutrin and patient agrees to remain on current dose for now as his mood is good; he will discuss with outpatient provider if he feels adjustments need to be made 06/28 remains in good mood without any SI; feels medications are helping and he is tolerating them well. No nightmares. Optimistic and future oriented. Dis cussed hypertension and patient agrees to increase lisinopril back to his home dose of 10 mg 06/29 remains in good mood without SI; sleeping well, tolerating medications. Remains with high blood pressure; proposal lead writer placed medical consult to assess for possible 2nd antihypertensive. Patient is not in imminent risk for harm to self or others and is appropriate for discharge and to continue treatment in the outpatient community. 06/30 Does not want med changes Plan: CV Q 15 minute checks Hospitalist consult placed to assess medication management for hypertension Continue lisinopril 10 mg q.a.m. Wellbutrin XL 150 mg a.m. Depakote ER 1750 mg q.h.s. (increased dose to correlate with Depakote DR 1500 mg) Labs: Within normal limits Depakote level low but therapeutic Increase to prazosin 3 mg q.h.s. for nightmares (discussed risks/benefits of this medication and patient wants to try) I spent minutes with the patient and/or on the patient floor today, greater than?50% of which was spent counseling/coordinating care. Patient educated on: other Reason for contiued inpatient stay Substantial Risk for: med/psych decompensation
[2022-06-30 18:00] VITALS: BP 165/96; PULSE 72; TEMP 36.6; O2SAT 95
[2022-06-30 19:32] VITALS: BP 169/107
[2022-06-30] MEDS: QUEtiapine Fumarate 100 MG TABLET PO (19:36)
[2022-06-30] MEDS: Prazosin HCL 1 MG CAPSULE 3 MG PO (19:36)
[2022-06-30] MEDS: Divalproex Sodium ER 250 MG TAB.ER.24H 1750 MG PO (19:37)
[2022-06-30] MEDS: Mineral Oil/Petrolatum,White 106 GM Tube 1 APPL TOPICAL (19:39)
[2022-07-01 06:00] VITALS: BP 187/99; PULSE 56; RESP 16; TEMP 36.6; O2SAT 97
[2022-07-01] MEDS: buPROPion HCl XL 150 MG TAB.ER.24H PO (08:00)
[2022-07-01] MEDS: DULoxetine HCl 60 MG CAPSULE.DR PO (08:00)
[2022-07-01] MEDS: Gabapentin 400 MG CAPSULE 800 MG PO (08:00)
[2022-07-01] MEDS: lisinopriL 10 MG TABLET PO (08:00)
--- NOTE | 2022-07-01 15:47 | P.PNPSI_ITS ---
Subjective Subjective Date of Service: 07/01/22 Reason For Visit: depression/ SI Interim History: Pt reports he is prepared for discharge. No current questions or concerns with medications or plan of care. Non psychotic, non suicidal, no symptoms he is concerned about addressing prior to discharge. Expressed gratitude to his care team for their work with him. Medication Compliance: Yes Side effects from medications: No Attending Groups: Intermittent Review of Systems Acute medical concerns: No Medical Review of Systems: unchanged Mental Status Exam Mental Status Exam Patient Orientation: Person, Place, Time and Situation Level of Consciousness: Alert Patient Behavior: Talkative and Good Eye Contact Mood Description: Appropriate Affect Description: Appropriate Patient Cognition Impaired: No Ability to Follow Directions: Good Speech Pattern: Spontaneous Speech Memory Description: Intact Hallucinations: None Delusions: Not Present Thought Process: Intact Thought Content: positive for Intact Judgement: Good Diagnostics Vital Signs (24Hr): Vital Signs - 24 hr 06/30/22 18:00 06/30/22 19:32 07/01/22 06:00 Temperature 98 F 97.8 F Pulse Rate 72 56 Respiratory Rate 16 Blood Pressure 165/96 H 169/107 H 187/99 H Pulse Oximetry 95 97 Oxygen Delivery Method Room Air BMI result Body Mass Index 31.8 Labs Results: 06/21/22 09:31 06/23/22 08:06 Medications Allergies Allergies Allergy/AdvReac Type Severity Reaction Status Date / Time buprenorphine [From Suboxone] Allergy Unknown Verified 06/21/22 08:56 naloxone [From Suboxone] Allergy Unknown Verified 06/21/22 08:56 Assessment & Plan Assessment & Plan (1) Bipolar I disorder: Status: Acute Code(s): F31.9 - Bipolar disorder, unspecified (2) Post traumatic stress disorder (PTSD): Status: Acute Code(s): F43.10 - Post-traumatic stress disorder, unspecified Plan Patient is a 62-year-old male with history of bipolar disorder, PTSD, cocaine abuse, multiple incarcerations who presents with severe depression and SI, hopeless feelings after being relapse on cocaine and in face of homelessness and chronic leg pain. Patient reports that he was psychiatrically hospitalized over a month ago for depression and suicidality. -patient depressed and struggling with feeling hopeless and tired of living 06/24 patient's mood is a little better but he still feeling depressed; no SI. Continues to have nightmares and agrees to increase prazosin; interested Well butrin which he has been on before 06/26 Mood has improved; thinks Wellbutrin is helping. No SI and patient more optimistic and hopeful about staying sober. 06/27 mood is good; no SI; tolerating medications well. Hopeful about getting into a program and optimistic about sobriety. Patient still hypertensive however will leave at lisinopril 5 mg for now and see if BP comes down some; otherwise will increase to 10 mg. Discussed Wellbutrin and patient agrees to remain on current dose for now as his mood is good; he will discuss with outpatient provider if he feels adjustments need to be made 06/28 remains in good mood without any SI; feels medications are helping and he is tolerating them well. No nightmares. Optimistic and future oriented. Discussed hypertension and patient agrees to increase lisinopril back to his home dose of 10 mg 06/29 remains in good mood without SI; sleeping well, tolerating medications. Remains with high blood pressure; telegraphic typewriter mechanic placed medical consult to assess for possible 2nd antihypertensive. Patient is not in imminent risk for harm to self or others and is appropriate for discharge and to continue treatment in the outpatient community. 07/01/22- Sylvester is prepared for discharge and is feeling ready to move forward. Plan: CV Q 15 minute checks Hospitalist consult placed to assess medication management for hypertension Continue lisinopril 10 mg q.a.m. Wellbutrin XL 150 mg a.m. Depakote ER 1750 mg q.h.s. (increased dose to correlate with Depakote DR 1500 mg) Labs: Within normal limits Depakote level low but therapeutic Increase to prazosin 3 mg q.h.s. for nightmares (discussed risks/benefits of this medication and patient wants to try) I spent minutes with the patient and/or on the patient floor today, greater than?50% of which was spent counseling/coordinating care. Patient educated on: therapeutic strategies Informed Consent: understands Reason for contiued inpatient stay Substantial Risk for: stable for discharge
--- NOTE | 2022-07-03 10:06 | MHC.CARE ---
Care Team received a call from [facility] Sandy needing to discuss [facility] referral that was made for passages level of care. Pt was identified to be at [facility]. Sandy was provided with [facility] phone number.
--- NOTE | 2022-07-05 11:00 | PM.PSYDC ---
DS: Providers Provider Date of Service: 07/01/22 Date of admission: 06/22/22 13:59 Date of discharge: 07/01/22 Primary care physician: Nonstaff Physician Attending physician on admission: Chad Quiros Consults: 06/29/22 17:14 Consult to Hospitalist Routine Consulting Provider: Hospitalist Reason For Exam: continued HTN (lisinopril increased to 10mg) Discharging clinician: Helena Tate DS: Diagnosis Discharge Diagnosis (1) Bipolar I disorder: Status: Acute (2) Post traumatic stress disorder (PTSD): Status: Acute DS: Medications Discharge Medications Home Medications: Home Medications Medication Instructions Recorded Confirmed doxycycline monohydrate 100 mg 100 mg PO BID 06/21/22 06/21/22 tablet Previous Rx's Medication Instructions Recorded bupropion HCl 150 mg 24 hr tablet, 150 mg PO DAILY #30 tabs 07/01/22 extended release divalproex 250 mg tablet,extended 250 mg PO BEDTIME #30 tabs 07/01/22 release 24 hr (Depakote ER) divalproex 500 mg tablet,extended 1,500 mg PO BEDTIME #90 tabs 07/01/22 release 24 hr (Depakote ER) duloxetine 60 mg capsule,delayed 1 cap PO DAILY #30 caps 07/01/22 release gabapentin 800 mg tablet 1 tab PO TID #90 tabs 07/01/22 lisinopril 10 mg tablet 10 mg PO DAILY #30 tabs 07/01/22 nicotine (polacrilex) 2 mg gum 4 mg buccal Q2H PRN Nicotine 07/01/22 Cravings #60 ea prazosin 1 mg capsule 3 mg PO BEDTIME #90 caps 07/01/22 quetiapine 100 mg tablet 1 tab PO BEDTIME #30 tabs 07/01/22 white petrolatum-mineral oil 1 appl topical TID PRN dry skin #1 07/01/22 topical cream (Dermacerin topical units cream) Mental Status Exam Mental Status Exam Narrative: Pt is alert and oriented; behavior is cooperative, friendly and calm; dressed in casual attire with adequate hygiene; mood is described as good and affect congruent, brighter; eye contact appropriate; Speech is normal rate, volume and prosody and not pressured; no psychomotor retardation present; thought process is organized and goal directed; Thought content is on plans to stay sober, regrets vs hopes, future plans; otherwise pertinent to relevant topics and without any delusional content, paranoid ideations or grandiosity; No SI; no HI. There is no evidence of perceptual disturbance;? Patients insight and judgment are intact. Data Data Completed and Pending Completed studies during hospitalization [Text1]: 06/29/22 06/29/22 09:47 09:47 Total Bilirubin 0.4 Direct Bilirubin < 0.2 AST 17 ALT 15 Alkaline Phosphatase 78 Ammonia 24 Total Protein 7.1 Albumin 4.2 Valproic Acid 57.0 DS: Summary Hospital Course Hospital Course: HPI: Patient is a 62-year-old male with history of bipolar disorder, PTSD, cocaine abuse, multiple incarcerations who presents with severe depression and SI, hopeless feelings after being relapse on cocaine and in face of homelessness and chronic leg pain.? Patient reports that he was psychiatrically hospitalized over a month ago for depression and suicidality. Hospital course: On admission, patient Cooperative and friendly, howeverdepressed and struggling with feeling hopeless, with passive SI and tired of living. He reported Wellbutrin was helpful in the past and does not know why he was ever stopped on it. He agrees to restarted and soon it showed itself to be effective. Patient also agreed to switching Depakote to long-acting so he could take it only at nighttime which was also helpful. Patient also benefited from prazosin and nightmares fully resolved. Patient's mood continued to improve and all suicidality fully resolved. Patient was engaged in treatment, attending groups, Appropriately social with peers and staff and depression fully abated. Patient was hopeful about getting into a program, feeling he needed to be in 1 in order to remain sober and he was eventually [facility]. Patient remained in good mood, depression resolved, no SI and nightmares also absent. He was future oriented and hopeful about staying sober, getting back into his daughter's life and even considering moving out to live with his supportive, sober brother in [place] who invited patient to restart his life there. On the unit, patient was hypertensive and he was restarted on lisinopril. Hypertension was discussed with patient, including his continued elevated blood pressures and likely need for an additional antihypertensive; although hospitalist consult was placed, Patient who understood this medical issue, did not want any further medication changes at this time and preferred to follow up with his outpatient provider. Patient was accepted to program and want to discharge. He remained in good mood, sleeping well, tolerating meds, no depression or SI, nightmares resolved and hopeful about his future. Patient was not in imminent risk for harm to self or others; it is appropriate to continue his treatment in the outpatient community and his request for discharge Status at Discharge Functional status at discharge: independent ambulation Overall status at discharge: patient is back to baseline Time Spent with Patient Time attestation: Total time spent providing and/or coordinating discharge services: Time spent: Less than 30 minutes Discharge Plan Discharge Patient Disposition: Xfer Inpatient Rehab Fac Discharge Diagnosis: PTSD Bipolar Disorder Referrals: [facility] [Other] - 07/14/22 (Please contact Arnulfo Oglesby, [employer], at the above number bi-weekly to maintain your status on the waitlist) Discharge Medications: New nicotine (polacrilex) 2 mg Gum 4 mg buccal Q2H PRN (Reason: Nicotine Cravings) Qty: 60 0RF prazosin 1 mg Capsule 3 mg PO BEDTIME Qty: 90 0RF Protocol: Hold for SBP< HOLD for SBP < : 90 lisinopril 10 mg Tablet 10 mg PO DAILY Qty: 30 0RF Protocol: Hold for SBP< HOLD for SBP < : 90 Dermacerin Cream 1 appl topical TID PRN (Reason: dry skin) Qty: 1 0RF Protocol: Apply to: Apply to: affected areas bupropion HCl 150 mg Tablet Extended Release 24 Hr 150 mg PO DAILY Qty: 30 0RF divalproex [Depakote ER] 250 mg tablet extended release 24 hr 250 mg PO BEDTIME Qty: 30 0RF Rx Instructions: Take 1750 mg at bedtime- Three 500 mg tabs and one 250 mg tab divalproex [Depakote ER] 500 mg tablet extended release 24 hr 1,500 mg PO BEDTIME Qty: 90 0RF Rx Instructions: Total dose 1750 mg bedtime. Take three tabs of 500 mg and one tab of 250 mg. Continued doxycycline monohydrate 100 mg Tablet 100 mg PO BID quetiapine 100 mg tablet 1 tab PO BEDTIME Qty: 30 0RF gabapentin 800 mg tablet 1 tab PO TID Qty: 90 0RF duloxetine 60 mg capsule,delayed release(DR/EC) 1 cap PO DAILY Qty: 30 0RF Discontinued divalproex 500 mg tablet,delayed release (DR/EC) 1 tab PO DAILY divalproex 500 mg tablet,delayed release (DR/EC) 1,000 mg PO BEDTIME Discharge Orders: Discharge Order (Routine); Ordered 07/01/22 Ordered By: Helena Tate Diet: Advance to usual diet Activity on Discharge: As tolerated Stand Alone Forms: Patient Portal Discharge page, Community Support Care Plan Goals: Maintain mood and safe behaviors Take medications as prescribed Practice coping skills Continue with out patient providers and reach out as needed Health Concerns: Mood stability and behaviors Plan of Treatment: Follow up with PCP, psychiatric providers and out patient providers Take medications as prescribed Assessment: Risk assessment at the time of discharge: Pt interviewed prior to discharge and found to be fully oriented and without any SI or HI. Pt has insight and demonstrates good judgment in terms of wanting to pursue treatment. Pt is not in imminent risk of harm to self or others and has a safety plan that included presenting to the closest ER or calling 911 if feeling unsafe. Pt has been observed closely by nursing and unit staff throughout admission. Pt has not engaged in any behaviors that suggest dangerousness to self or others and has demonstrated appropriate behaviors and impulse control. Discharge Date/Time: 07/01/22 13:56
== END 2022-07-01 13:56 | DRG 753 ==
LOC: HO.ED 15:13 → HO.PM5 06-22 16:47
PROVIDERS: Admitting Provider Psychiatry & Neurology Psychiatry; Emergency Provider Emergency Medicine; Visit Provider Psychiatry & Neurology Psychiatry
DX: F31.9 Bipolar disorder, unspecified (principal); R45.851 Suicidal ideations; F43.10 Post-traumatic stress disorder, unspecified; Z20.822 Contact with and (suspected) exposure to COVID-19; Z87.891 Personal history of nicotine dependence; Z88.8 Allergy status to other drugs, medicaments and biological substances; Z79.899 Other long term (current) drug therapy
CPT/HCPCS: 36415; 80048; 80053; 80061; 80076; 80164; 80307; 81003; 82077; 82140; 83036; 83735; 84439; 85025; 87635; 93005; 99284; 99285